=== PATIENT | female | born 1975 | race Caucasian/White ===

== ENCOUNTER 2020-05-31 22:25 | Emergency (ER) | payer BC ==
[~2020-05-31 22:25] MED LIST: ALLERGY MEDICAT25 MG; BACTRIM DS TAB1 EACH PO; BENICAR40 MG PO; CEFDINIR300 MG PO; CYCLOBENZAPRINE5 MG PO; LISINOPRIL5 MG PO; METFORMIN HCL500 MG PO; NAPROSYN500 MG PO; NIFEDIAC CC60 MG PO; OMEPRAZOLE40 MG PO; ONDANSETRON ODT8 MG PO; PYRIDIUM100 MG PO; ULTRAM50 MG PO
[2020-06-01] MEDS ORDERED: DIPHENHYDRAMINE HCL INJ 50 MG/ML VIAL IM ONE (00:15)
[2020-06-01] MEDS ORDERED: DIPHENHYDRAMINE HCL INJ 50 MG/ML VIAL ONE (00:33)
== END 2020-06-01 00:31 | disposition home or self-care (01) ==
LOC: FSED 23:58 → MERGE 23:58 → FSED 06-01 00:31
DX: M79.89 Other specified soft tissue disorders (principal); T50.Z95A Adverse effect of other vaccines and biological substances, initial encounter; I10 Essential (primary) hypertension; E11.9 Type 2 diabetes mellitus without complications
CPT/HCPCS: 99282; J1200

== ENCOUNTER 2020-06-03 14:11 | Emergency (ER) | payer BC ==
[~2020-06-03] VITALS: Ht 147.3 cm; Wt 105.7 kg
[2020-06-03] MEDS ORDERED: HYDRALAZINE HCL50 MG PO (15:50)
[2020-06-03] MEDS ORDERED: METFORMIN HCL500 MG PO (15:50)
[2020-06-03] MEDS ORDERED: AMLODIPINE BESY10 MG PO (15:50)
[2020-06-03] MEDS ORDERED: OLMESARTAN-HCT1 EAC2 (15:50)
[2020-06-03] MEDS ORDERED: birth control (15:50)
[2020-06-03] MEDS ORDERED: ATORVASTATIN CA10 MG PO (15:50)
[2020-06-03] MEDS ORDERED: METHYLPREDNISOLONE SOD SUCC 125 MG/2ML VIAL IM ONE (16:00)
[2020-06-03] MEDS ORDERED: PREDNISONE20 MG PO (16:32)
[2020-06-03] MEDS ORDERED: BACTRIM DS TAB1 EACH PO (16:39)
[2020-06-03 16:52] VITALS: BP 109/72
== END 2020-06-03 16:50 | disposition home or self-care (01) ==
LOC: MERGE 14:56 → FSED 14:56
DX: R21 Rash and other nonspecific skin eruption (principal); T78.40XA Allergy, unspecified, initial encounter; R51.9 Headache, unspecified; I10 Essential (primary) hypertension; E11.9 Type 2 diabetes mellitus without complications; E78.5 Hyperlipidemia, unspecified
CPT/HCPCS: 96372; 99282; J2930

== ENCOUNTER 2020-07-11 21:47 | Emergency (ER) | payer OTHER, BC ==
[~2020-07-11] VITALS: Ht 147.3 cm; Wt 108.9 kg
[~2020-07-11 21:47] MED LIST changes: +AMLODIPINE BESY10 MG PO; +ATORVASTATIN CA10 MG PO; +HYDRALAZINE HCL50 MG PO; +OLMESARTAN-HCT1 EAC2; +PREDNISONE20 MG PO; +birth control
[2020-07-11] MEDS ORDERED: KETOROLAC TROMETHAMINE 60 MG/2 ML VIAL IM ONE (22:15)
[2020-07-11] MEDS ORDERED: KETOROLAC TROMETHAMINE 60 MG/2 ML VIAL ONE (22:36)
== END 2020-07-12 00:30 | disposition home or self-care (01) ==
LOC: FSED 22:13
DX: S13.4XXA Sprain of ligaments of cervical spine, initial encounter (principal); S23.3XXA Sprain of ligaments of thoracic spine, initial encounter; S33.5XXA Sprain of ligaments of lumbar spine, initial encounter; V43.52XA Car driver injured in collision with other type car in traffic accident, initial encounter; Y92.488 Other paved roadways as the place of occurrence of the external cause; I10 Essential (primary) hypertension; E11.9 Type 2 diabetes mellitus without complications; E78.5 Hyperlipidemia, unspecified
CPT/HCPCS: 72125; 72128; 72131; 99283; J1885

== ENCOUNTER → 2024-04-14 | Day surgery (SDC) | payer BC ==
[~2024-04-14] MED LIST changes: +ALIGN4 MG PO; +CLARITIN10 MG PO; +DICYCLOMINE HCL10 MG PO; +GLUCOTROL XL10 MG PO; +IBGARD90 MG PO; +LANSOPRAZOLE30 MG PO; +LEXAPRO20 MG PO; +LIDOCAINE HCL 2% LOCAL INJ 5 ML SDV VIAL INJ ONE; +PROPOFOL IV EMULSION 50 ML IV ONE; +[UNRECOGNIZED DRUG - OTHER] PO
[2024-04-14 07:22] VITALS: TEMP 98.9
[2024-04-14 07:35] VITALS: BP 115/73; PULSE 78; RESP 16; O2SAT 97
[2024-04-14] MEDS: LACTATED RINGER'S 1,000 ML ONE (07:47)
== END | disposition home or self-care (01) ==
LOC: OR 05:24
PROVIDERS: ATTEND Internal Medicine Gastroenterology
DX: Z12.11 Encounter for screening for malignant neoplasm of colon (principal); K29.50 Unspecified chronic gastritis without bleeding; K21.9 Gastro-esophageal reflux disease without esophagitis; K44.9 Diaphragmatic hernia without obstruction or gangrene; K64.8 Other hemorrhoids; Z71.3 Dietary counseling and surveillance; G47.33 Obstructive sleep apnea (adult) (pediatric); E11.9 Type 2 diabetes mellitus without complications; I10 Essential (primary) hypertension; Z78.9 Other specified health status; N39.0 Urinary tract infection, site not specified; F41.9 Anxiety disorder, unspecified; F32.A Depression, unspecified; Z88.7 Allergy status to serum and vaccine; Z01.810 Encounter for preprocedural cardiovascular examination; Z79.84 Long term (current) use of oral hypoglycemic drugs; Z79.899 Other long term (current) drug therapy; Z68.42 Body mass index [BMI] 45.0-49.9, adult
CPT/HCPCS: 43239; 45378; 81025; 88305; 93005; J2003; J2704; J7121